=== PATIENT | female | born 1985 | race Caucasian/White ===

== ENCOUNTER 2019-07-16 13:37 | Outpatient (CLI) | payer OTHER, SELFPAY ==
--- NOTE | ~2019-07-16 | US_ITS ---
EXAMINATION: US thyroid EXAM DATE: 07/16/2019 14:21 INDICATION: Low TSH. TECHNIQUE: Multiple grayscale and Doppler images of the thyroid were obtained (by a technologist who performed the scan) and subsequently reviewed. Individual nodules and recommendations may be reporte d in accordance with TI-RADS system as designated by the 2017 ACR White Paper TI-RADS committee. The re is no prior study for comparison. FINDINGS: Right thyroid lobe measures 6.4 x 2.3 x 2.3 cm, the left measuring 6.4 x 2.3 x 2.4 cm. Measurements a re moderately enlarged, with hypervascular and diffusely heterogeneous echogenicity. There are severa l thyroid nodules. There is right thyroid lobe inferior pole nodule measuring 1.7 x 1.3 x 1.3 centimeters, predominantl y solid (2 points), isoechoic (1 point), wider than tall, smooth margin, without echogenic foci, scarlett gorrobby TR3 for this nodule. Largest left thyroid lobe lower pole nodule measures 1.6 x 1.0 x 1.2 centimeters, solid (2 points), h ypoechoic (2 points), wider than tall, smooth margin, without echogenic foci, category TR4 for this n odule. IMPRESSION: 1. Multinodular hypervascular goiter. 2. Could consider ultrasound-guided biopsy of the largest left thyroid lobe nodule. Reviewed, dictated and finalized at location A. IMPRESSION: 1. Multinodular hypervascular goiter. 2. Could consider ultrasound-guided biopsy of the largest left thyroid lobe no dule.
== END 2019-07-16 13:38 | disposition home or self-care (01) ==
PROVIDERS: PCP Emergency Medicine; Visit Provider Emergency Medicine
DX: R79.89 Other specified abnormal findings of blood chemistry (principal); E04.2 Nontoxic multinodular goiter
CPT/HCPCS: 76536